=== PATIENT | male | born 1945 | race Caucasian/White ===

== ENCOUNTER 2018-09-26 08:00 | Outpatient (RCR) ==
--- NOTE | 2018-09-12 10:46 | RS.OPPTEV2 ---
Date of Note: 09/11/18 Visit #: 1 Number of visits approved by Insurance: 15 Date of Evaluation: 09/11/18 Payer Source: Insurance ([employer]) Surgery Performed?: No Treatment Diagnosis: low back pain History of Condition/Mechanism of Injury:: pt has long history of low back and knee pain. Reports these are results of injuries that occured while patient was in the [employer] many years ago and have gradually gotten worse. 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 States the MD just kept giving him medicine, pt states he now has a new MD that has discussed PT as well as possible pain management with him. New MD also referred him to ortho MD for his knee. Treatment Side (optional): N/A *Precautions: n/a Medical History Medical History: Arthritis, Cancer (prostate) Medical History Comments:: hypothyroid, GERD, Surgical History: Cholecystectomy Surgical History Comments:: appey, hernia repair, prostatectomy Smoking Status: Former smoker Hx Home Medications: dorzolamide, latanoprost, levothyroxine, meloxicam, sildenafil citrate, Patient's Goals: decrease pain Pain Assessment - Pain Description Pain Location: Low back pain, L knee pain Pain Description: Aching Current Pain Intensity: 5/10 Functional Outcome Measure Oswestry LBP: 28 - G Codes & Severity Modifier G Codes & Modifier: mobility walking and moving around current CK. mobility walking and moving around goal CJ Source of G Code score: oswestry low back pain scale Observation - Observation Posture: Forward Head, Rounded Shoulders, Increased Thoracic Kyphosis, Decreased Lumbar Lordosis Handedness: Right Gait - Gait Pattern Gait Comments: pt amb with slight forward flexed posture General Range of Motion: ROM BUE WFLs. ROM BLE WFL's Muscle Strength: BUE 5/5. RLE 5/5, LLE hip flex 5/5, knee flex/ext 4+/5, ankle DF/PF 5/5 - ROM Lumbar Flexion: Hand reach to Mid-Shins Sidebending to Left: Reach to Proximal Fibular Head Sidebending to Right: Reach to Proximal Fibular Head Lumbar Spine ROM Limitations: Soft Tissue Tightness, Muscle Weakness, Pain Comments: pt with increased pain with flex and ext with ext being more significant. - Strength Trunk Extension: 3- Fair- Trunk Flexion: 4- Good- Trunk Lateral Flexion: 4 Good Trunk Rotation: 4- Good- - Special Tests CHRISTINA Test: Negative Left, Negative Right SLR Test: Positive Left SI Joint Compression: Negative Palpation Palpation Findings: Tenderness Comments:: pt presents with tenderness as well as muscle guarding lumbar paraspinal muscles. Sensation - Sensation Right Upper Extremity: Intact/Normal Left Upper Extremity: Intact/Normal Right Lower Extremity: Intact/Normal Left Lower Extremity: Intact/Normal - Treatment Modality: Electrical Stim Unattended Parameters/Method Applied: IFC x 20 mins at 12 Treatment Area: lumbar Patient Position: Right Sidelying - Heat/Cryotherapy Treatment: Hot Pack Comments:: with estim Interventions - Exercise/Activities/Manual Therapy Exercises/Activities: pt performed pelvic tilt, knee to chest, hamstring stretch with assist. Manual Therapy: n/a HOME EXERCISE PROGRAM: pt given written HEP including pelvic tilt, lower trunk rotation, knee to chest, hamstring stretch - Charges Timed Code Treatment Minutes: 41 Total Treatment Time: 59 Procedures billed for this date of service:: eval low, estim, hp EVALUATION COMPLEXITY LEVEL EVALUATION COMPLEXITY LEVEL: HISTORY: Low, EXAM OF BODY SYSTEMS: Low, CLINICAL PRESENTATION: Low, CLINICAL DECISION MAKING: Low Assessment Assessment: pt presents with low back pain without c/o radicular symptoms. pt presents with limted lumbar ROM as well as muscle tightness. pt also has pain in L knee due to OA. Feel pt would benefit from skilled PT for therex for stretching, strengthening (focus on core strengthening) as well as modalities to decrease pain. Patient Education: Home Exercise Program, Education of Plan of Care Rehab Potential: Good Short Term Goals Goal #1: pt independent with initial HEP Goal to be met by: 10/03/18 Goal #2: Decreased tightness in BLE hamstring and piriformis stretch Goal to be met by: 10/03/18 Goal #3: Decrease low back pain <5/10 Goal to be met by: 10/03/18 [employer] Goals Goal #1: pt report able to perform normal daily household tasks w less pain Goal to be met by: 10/24/18 Goal #2: pt with lumbar ROM WFL's Goal to be met by: 10/24/18 Goal #3: Improvement with postural awareness. Goal to be met by: 10/24/18 Plan - Treatment to be Provided Procedures: Therapeutic Exercises, Therapeutic Activity, Manual Therapy, Massage , Patient Education Modalities: Electrical Stimulation, Cryotherapy, Hot Packs, Mechanical Traction Other:: pt with h/o of prostate cancer - Treatment Plan Frequency: 2 X week Duration: 6 weeks Dates of [facility] Goals: 10/24/18 Expiration date of current Insurance Approval:: n/a - Treatment Code (1) Low back pain Code(s): M54.5 - LOW BACK PAIN Qualifiers: Chronicity: chronic Back pain laterality: unspecified Sciatica presence: without sciatica Qualified Code(s): M54.5 - Low back pain; G89.29 - Other chronic pain (2) Muscle tightness Code(s): M62.89 - OTHER SPECIFIED DISORDERS OF MUSCLE
--- NOTE | 2018-09-15 12:59 | RS.OPPTDN ---
Subjective Date of Note: 09/15/18 Visit #: 2 Number of visits approved by Insurance: 15 total (including evaluation) Date of Evaluation: 09/11/18 Payer Source: Insurance ([employer]) Treatment Diagnosis: low back pain Current Subjective/complaints:: States treatment at evaluation seemed to stir up his low back pain. Following treatment today, he reports back feels a little better. State he is working on exercises given to him for HEP. *Precautions: n/a Pain Assessment - Pain Description Pain Location: center of low back Current Pain Intensity: 5/10 - Treatment Modality: Electrical Stim Unattended Parameters/Method Applied: 4 large pads crossed current X 20 mins HVGS up to 210 peak volts to low back. Patient Position: Right Sidelying Comments: Mr. Ferrara states he liked the HVGS today. - Heat/Cryotherapy Treatment: Hot Pack (with Estim to low back) Interventions - Exercise/Activities/Manual Therapy Exercises/Activities: Assisted patient with stretching to bilateral HS, SKTC, Piriformis, and lower trunk rotation. Total minutes of Exercise: X 18 mins Manual Therapy: n/a HOME EXERCISE PROGRAM: pt given written HEP including pelvic tilt, lower trunk rotation, knee to chest, hamstring stretch - Charges Timed Code Treatment Minutes: 18 mins Total Treatment Time: 38 mins Procedures billed for this date of service:: Hp, Un Estim, EX Assessment: Mr. Ferrara is very pleasant and tolerated stretching well. Hamstrings are tight bilaterally and continued stretch, among other exercises, should help reduce back pain. Patient demonstrates compliance with HEP?: Yes Short Term Goals Goal #1: pt independent with initial HEP Goal to be met by: 10/03/18 Progress towards Goal:: Progressing Goal #2: Decreased tightness in BLE hamstring and piriformis stretch Goal to be met by: 10/03/18 Goal #3: Decrease low back pain <5/10 Goal to be met by: 10/03/18 Intermediate Goals Goal #1: pt report able to perform normal daily household tasks w less pain Goal to be met by: 10/24/18 Goal #2: pt with lumbar ROM WFL's Goal to be met by: 10/24/18 Goal #3: Improvement with postural awareness. Goal to be met by: 10/24/18 Plan Dates of Intermediate Goals: 10/24/18 Expiration date of current Insurance Approval:: 10/24/18 PLAN: Progress exercises as tolerated to reduce low back pain.
--- NOTE | 2018-09-19 16:20 | RS.OPPTDN ---
Subjective Date of Note: 09/19/18 Visit #: 3 Number of visits approved by Insurance: 15 Date of Evaluation: 09/11/18 Payer Source: Insurance ([employer]) Treatment Diagnosis: low back pain Current Subjective/complaints:: Mr. Ferrara states stretching has felt like its helping his low back. No new complaints today. *Precautions: n/a Pain Assessment - Pain Description Pain Location: center of low back Current Pain Intensity: mild today - Treatment Modality: Electrical Stim Unattended Parameters/Method Applied: 4 large pads crossed current HVGS X 20 mins up to 300 peak volts with hp Patient Position: Right Sidelying Interventions - Exercise/Activities/Manual Therapy Exercises/Activities: Assisted patient with stretching to bilateral HS, SKTC, Piriformis, and lower trunk rotation. Total minutes of Exercise: X 18 mins Manual Therapy: n/a HOME EXERCISE PROGRAM: pt given written HEP including pelvic tilt, lower trunk rotation, knee to chest, hamstring stretch - Charges Timed Code Treatment Minutes: 18 mins Total Treatment Time: 40 mins Procedures billed for this date of service:: Estim, HP, Ex Assessment: Mr. Ferrara states he feels like the Estim and stretching are helping his back. Asks to schedule one visit next week since it will be a short week with . Patient Education: Education of diagnosis, Body/Joint mechanics, Home Exercise Program, Education of Plan of Care Patient demonstrates compliance with HEP?: Yes Short Term Goals Goal #1: pt independent with initial HEP Goal to be met by: 10/03/18 Progress towards Goal:: Progressing Goal #2: Decreased tightness in BLE hamstring and piriformis stretch Goal to be met by: 10/03/18 Progress towards Goal:: Progressing Goal #3: Decrease low back pain <5/10 Goal to be met by: 10/03/18 Shelter Goals Goal #1: pt report able to perform normal daily household tasks w less pain Goal to be met by: 10/24/18 Goal #2: pt with lumbar ROM WFL's Goal to be met by: 10/24/18 Goal #3: Improvement with postural awareness. 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
--- NOTE | 2018-09-26 09:25 | RS.OPPTDN ---
Subjective Date of Note: 09/26/18 Visit #: 4 Number of visits approved by Insurance: 15 Date of Evaluation: 09/11/18 Payer Source: Insurance ([employer]) Treatment Diagnosis: low back pain Current Subjective/complaints:: pt states that he is feeling better, he feels like the stretches are helping. States he has been trying to practice his stretches at home. *Precautions: n/a Pain Assessment - Pain Description Pain Location: low back Pain Description: Aching Current Pain Intensity: 1-2 - Treatment Modality: Electrical Stim Unattended Parameters/Method Applied: hivolt x 20 mins at 275pv. Treatment Area: lumbar Patient Position: Right Sidelying - Heat/Cryotherapy Treatment: Hot Pack Comments:: lumbar spine with estim Interventions - Exercise/Activities/Manual Therapy Exercises/Activities: pt received hamstring stretch, piriformis stretch, lower trunk rotation stretch, single knee to chest. Manual Therapy: n/a HOME EXERCISE PROGRAM: pt given written HEP including pelvic tilt, lower trunk rotation, knee to chest, hamstring stretch - Charges Timed Code Treatment Minutes: 18 Total Treatment Time: 41 Procedures billed for this date of service:: ex, estim, hot pack Assessment: pt progressing with decreased low back pain, improving flexibility. pt has met STG 1, 3 and progressing toward remaining goals. Patient Education: Home Exercise Program, Education of Plan of Care Patient demonstrates compliance with HEP?: Yes Short Term Goals Goal #1: pt independent with initial HEP Goal to be met by: 10/03/18 Progress towards Goal:: Met Goal #2: Decreased tightness in BLE hamstring and piriformis stretch Goal to be met by: 10/03/18 Progress towards Goal:: Progressing Goal #3: Decrease low back pain <5/10 Goal to be met by: 10/03/18 Progress towards Goal:: Met Jail Goals Goal #1: pt report able to perform normal daily household tasks w less pain Goal to be met by: 10/24/18 Progress towards goal: Progressing Goal #2: pt with lumbar ROM WFL's Goal to be met by: 10/24/18 Progress towards goal: Progressing Goal #3: Improvement with postural awareness. 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
== END 2018-09-26 23:59 ==
PROVIDERS: ATTEND Family Medicine
DX: M54.5 Low back pain (principal)